=== PATIENT | female | born 1945 | race Caucasian/White ===

== ENCOUNTER 2023-11-23 12:51 | Emergency (ER) | payer MEDICARE, OTHER, SELFPAY ==
[2023-11-23 13:20] VITALS: BP 126/73; PULSE 77; RESP 18; TEMP 36.8; O2SAT 100; BMI 22.8
--- NOTE | 2023-11-23 13:23 | XRR_ITS ---
PROCEDURE INFORMATION: Exam: XR Left Hip Exam date and time: 11/23/2023 1:29 PM Age: 78 years old Clinical indication: Injury or trauma; Fall; Blunt trauma (contusions or hematomas); Left; Hip TECHNIQUE: Imaging protocol: Radiologic exam of the left hip. Views: 2 or 3 views hip with pelvis when performed. COMPARISON: No relevant prior studies available. FINDINGS: Bones/joints: Mild joint space narrowing of the left hip with minimal femoral head ring osteophytes and mild buttressing. There is no significant subchondral cystic formation. Mild subchondral sclerosis. No acute fracture. Soft tissues: Unremarkable. XR/XR hip LT 2-3V wo/w pel* [id number] IMPRESSION: No acute fracture.
[2023-11-23 13:42] VITALS: BP 102/66; PULSE 74; RESP 16; TEMP 36.4; O2SAT 99
--- NOTE | 2023-11-23 13:52 | W.ED.FALL ---
HPI - Fall General: Chief Complaint: Fall Stated Complaint: left hip pain post fall Time Seen by Provider: 11/23/23 13:24 Source: patient Mode of arrival: ambulatory Limitations: no limitations History of Present Illness: 78-year-old female states she had a fall 2 weeks ago states landed on her left knee and hip states that last 2 days she has been having some left hip pain. She seems to be worse with rest does improve when she gets up and walks. She denies any difficulty ambulating she denies any other injuries with her fall. Associated symptoms-after fall: Denies abdominal pain, chest pain, headache(s) or neck pain Review of Systems Const: Denies: fever(s), chills, body aches or change in appetite ENMT: Denies: throat pain or dental pain Card: Denies: chest pain Resp: Denies: dyspnea GI: Denies: abdominal pain, nausea, vomiting or diarrhea Musc: Reports: extremity pain; Denies: neck pain or back pain Skin/Breast: Denies: rash Neuro: Denies: headache(s) PFSH ED PFSH: Family History Other CAD (coronary artery disease) Cancer Chronic kidney disease (CKD) Dementia Diabetes Hypertension Stroke Denies family history of Anesthesia complication Social History Smoking and tobacco/nicotine status: never used tobacco/nicotine Alcohol intake: current Alcohol intake frequency: 3 or more drinks per day Alcohol type: beer Substance/Drug Use: never Lives independently: Yes Household members: spouse Marital status: Physical Exam Const: COMMON NORMALS: no acute distress, patient oriented x3 and healthy appearing HENMT: COMMON NORMALS: normocephalic and atraumatic HEAD & SCALP: normocephalic and atraumatic Eye: COMMON NORMALS: conjunctivae normal CONJUNCTIVA: Yes conjunctivae normal Neck/C-Spine: COMMON NORMALS: full ROM and supple Chest: COMMONS NORMALS: normal inspection of the chest Resp: COMMON NORMALS: normal respiratory effort Extremity: COMMON NORMALS: normal to inspection and full ROM NARRATIVE EXTREMITY EXAM: Slight tenderness over left lateral hip no deformity patient was able to ambulate in the room without any difficulty. Neuro: COMMON NORMALS: patient oriented x3, moves all extremities and no focal motor deficits Psych: COMMON NORMALS: mental status grossly normal, Normal thought process present and cooperative THOUGHT PROCESS: Normal thought process present Skin: COMMON NORMALS: no rashes or lesions noted and no wounds GENERAL SKIN EXAM: no rashes or lesions noted Course Vital Signs: Vital signs: Vital Signs Temperature 97.6 F 11/23/23 13:42 Pulse Rate 74 11/23/23 13:42 Respiratory Rate 16 11/23/23 13:42 Blood Pressure 102/66 11/23/23 13:42 Pulse Oximetry 99 11/23/23 13:42 Oxygen Delivery Me thod Room Air 11/23/23 13:42 MDM - Fall Medical Decision Making Patient presents with hip pain from a fall x-ray shows no fracture she is ambulatory here without any difficulty we will place her on Naprosyn Robaxin she is follow-up with PCP return if worsening. Medical Records I reviewed the patient's medical records. XR interpretation done by ED provider, pending radiology final review ED provider radiology interpretation(s): xr l hip: no acute abnormality Discharge Plan Discharge Patient Disposition: Home Clinical Impression: Hip pain, left, Fall Condition: Stable Prescriptions: New methocarbamol 750 mg tablet 750 mg PO Q6H PRN (Reason: spasms) Qty: 20 0RF naproxen [Naprosyn] 500 mg tablet 500 mg PO BID PRN (Reason: pain) Qty: 20 0RF Discharge Orders: Discharge ED (Routine); Ordered 11/23/23 Ordered By: Shabana Chase Referrals: Ivon Patel DO [Primary Care Provider] - 1-3 days Discharge Diet: Advance as tolerated Discharge Activity: Resume usual activity Patient Instructions: Hip Pain (ED) Coding Level of Care Code ED Behavioral Consultant for Jeffrey Ray
[2023-11-23 14:04] VITALS: BP 102/66; PULSE 74; RESP 16; TEMP 36.4; O2SAT 99
[2023-11-23] MEDS: dexamethasone 10 mg/mL INJ IM (14:04)
== END 2023-11-23 14:05 | disposition home or self-care (01) ==
PROVIDERS: Emergency Provider Emergency Medicine; PCP Family Medicine
DX: M25.552 Pain in left hip (principal)
CPT/HCPCS: 73502; 96372; 99284; J1100